=== PATIENT | male | born 1990 | race Caucasian/White ===

== ENCOUNTER 2020-12-18 10:34 | Inpatient (IN) | payer MEDICAID, OTHER ==
[~2020-12-18] VITALS: Ht 175.3 cm; Wt 60.3 kg
[~2020-12-18 10:34] MED LIST: BENZ1TAB70 PO; FLUP5TAB15 PO
[2020-12-18 11:34] LABS: BASOPHILS % (AUTO) 0.4 % (0.0-2.0); EOSINOPHILS % (AUTO) 0.4 % (1.0-6.0); HEMATOCRIT 47.1 % (41-53); HEMOGLOBIN 15.7 g/dL (13.5-17.5); LYMPHOCYTES % (AUTO) 11.5 % (22.0-44.0); MEAN CORPUSCULAR HEMOGLOBIN 30.4 pg (26.0-34.0); MEAN CORPUSCULAR HGB CONC 33.4 G/dL (31.0-37.0); MEAN CORPUSCULAR VOLUME 91 fL (80-100); MONOCYTES # (AUTO) 0.6 K/uL (0.1-1.0); MONOCYTES % (AUTO) 6.6 % (2.0-9.0); NEUTROPHILS % (AUTO) 81.1 % (40.0-70.0); PLATELET COUNT (AUTO) 211 K/uL (150-450); RED BLOOD CELL COUNT(AUTO) 5.18 MIL/uL (4.50-5.90); RED CELL DISTRIBUTION WIDTH 12.6 % (11.5-14.5)
[2020-12-18 11:38] LABS: COVID AG,FIA SOURCE NASAL SWAB
[2020-12-18 11:48] LABS: ANION GAP 8 mmol/L (8-16); CALCIUM, TOTAL 8.9 mg/dL (8.8-10.5); CARBON DIOXIDE 29 mmol/L (22-29); CHLORIDE 101 mmol/L (98-107); CREATININE 0.81 mg/dL (0.60-1.30); GLOMERULAR FILTR. RATE CALC > 60 mL/min (>60); GLUCOSE,RANDOM 94 mg/dL (70-110); POTASSIUM 4.2 mmol/L (3.5-5.1); SODIUM SERUM 138 mmol/L (136-145); UREA NITROGEN, BLOOD 22 mg/dL (7-18)
[2020-12-18 11:53] LABS: ALANINE AMINOTRANSFERASE 23 U/L (12-78); ALBUMIN 4.1 g/dL (3.4-5.0); ALKALINE PHOSPHATASE 85 U/L (46-116); ASPARTATE AMINOTRANSFERASE 18 U/L (15-37); BILIRUBIN,TOTAL 0.4 mg/dL (0.1-1.0)
[2020-12-18 11:54] LABS: ACETAMINOPHEN < 2 mcg/mL (10-30)
[2020-12-18 12:34] LABS: GLUCOSE, URINE (UA) NEGATIVE (NEGATIVE); KETONES,URINE 15 mg/dL (NEGATIVE); LEUKOCYTE ESTERASE ,URINE NEGATIVE (NEGATIVE); NITRATE,URINE NEGATIVE (NEGATIVE); OCCULT BLOOD,URINE NEGATIVE (NEGATIVE); PH,URINE 5.5 (5.0-8.0); PROTEIN,URINE NEGATIVE (NEGATIVE)
[2020-12-18 12:40] LABS: AMPHET/METH SCREEN,URINE POSITIVE (NEGATIVE); BARBITURATE SCREEN, URINE NEGATIVE (NEGATIVE); BENZODIAZEPINES SCREEN,URINE NEGATIVE (NEGATIVE); CANNABINOID SCREEN,URINE NEGATIVE (NEGATIVE); COCAINE SCREEN,URINE NEGATIVE (NEGATIVE); METHADONE SCREEN, URINE NEGATIVE (NEGATIVE); OPIATE SCREEN,URINE NEGATIVE (NEGATIVE)
[2020-12-18 12:41] LABS: BILIRUBIN,URINE PRELIM. POSITIVE (NEGATIVE); PHENCYCLIDINE SCREEN,URINE NEGATIVE (NEGATIVE)
[2020-12-18 12:42] LABS: APPEARANCE,URINE HAZY (CLEAR); BACTERIA,URINE None Seen /HPF (None Seen); RBC,URINE 0-2 /HPF (0-2); WBC,URINE None Seen /HPF (0-5)
[2020-12-18 16:25] VITALS: BP 124/77
[2020-12-18] MEDS: BACITRACIN 28 GM OINTMENT TP SCH (19:00)
[2020-12-19 00:48] VITALS: BP 106/59
[2020-12-19 08:09] VITALS: BP 112/64
[2020-12-19] MEDS: BACITRACIN 28 GM OINTMENT TP SCH ×2 (09:00→16:31)
[2020-12-19] MEDS: NICOTINE 14 MG/24 HOUR PATCH TD SCH (09:00)
[2020-12-19] MEDS: OLANZapine 5 MG RAPDIS TABLET PO SCH ×2 (11:37→20:40)
[2020-12-19] MEDS: FLUoxetine HCL 20 MG CAPSULE PO SCH (11:38)
[2020-12-19 16:15] VITALS: BP 112/74
[2020-12-20 02:30] VITALS: BP 120/78
[2020-12-20] MEDS: FLUoxetine HCL 20 MG CAPSULE PO SCH (08:36)
[2020-12-20] MEDS: OLANZapine 5 MG RAPDIS TABLET PO SCH ×2 (08:36→20:07)
[2020-12-20] MEDS: BACITRACIN 28 GM OINTMENT TP SCH ×2 (09:00→16:41)
[2020-12-20] MEDS: NICOTINE 14 MG/24 HOUR PATCH TD SCH (09:00)
[2020-12-21 02:00] VITALS: BP 119/77
[2020-12-21] MEDS: OLANZapine 5 MG RAPDIS TABLET PO SCH ×2 (08:54→20:14)
[2020-12-21] MEDS: FLUoxetine HCL 20 MG CAPSULE PO SCH (08:54)
[2020-12-21] MEDS: NICOTINE 14 MG/24 HOUR PATCH TD SCH (08:59)
[2020-12-21] MEDS: BACITRACIN 28 GM OINTMENT TP SCH ×2 (08:59→16:29)
[2020-12-21] MEDS: HALOPERIDOL 5 MG TABLET PO PRN (18:31)
[2020-12-21] MEDS: LORazepam 2 MG TABLET PO PRN (18:31)
[2020-12-22 00:36] VITALS: BP 102/63
[2020-12-22] MEDS: FLUoxetine HCL 20 MG CAPSULE PO SCH (08:32)
[2020-12-22] MEDS: LORazepam 2 MG TABLET PO PRN ×2 (08:33→17:49)
[2020-12-22] MEDS: OLANZapine 5 MG RAPDIS TABLET PO SCH ×2 (08:33→20:41)
[2020-12-22] MEDS: NICOTINE 14 MG/24 HOUR PATCH TD SCH (08:45)
[2020-12-22] MEDS: BACITRACIN 28 GM OINTMENT TP SCH ×2 (08:45→16:14)
[2020-12-22] MEDS: HALOPERIDOL 5 MG TABLET PO PRN (17:49)
[2020-12-23 07:02] LABS: COVID AG,FIA SOURCE NASOPHARYNGEAL
[2020-12-23] MEDS: OLANZapine 5 MG RAPDIS TABLET PO SCH ×3 (09:00→20:32)
[2020-12-23] MEDS: BACITRACIN 28 GM OINTMENT TP SCH ×2 (09:00→17:00)
[2020-12-23] MEDS: FLUoxetine HCL 20 MG CAPSULE PO SCH ×2 (09:00→10:27)
[2020-12-23] MEDS: NICOTINE 14 MG/24 HOUR PATCH TD SCH (09:00)
[2020-12-23] MEDS ORDERED: HALOPERIDOL LACTATE 5 MG/ML VIAL IM PRN (09:30)
[2020-12-23] MEDS ORDERED: OLANZapine 5 MG RAPDIS TABLET PO SCH (21:00)
[2020-12-24] MEDS: NICOTINE 14 MG/24 HOUR PATCH TD SCH (09:00)
[2020-12-24] MEDS: OLANZapine 5 MG RAPDIS TABLET PO SCH ×2 (09:19→20:33)
[2020-12-24] MEDS: BACITRACIN 28 GM OINTMENT TP SCH ×2 (09:19→17:00)
[2020-12-24] MEDS: FLUoxetine HCL 20 MG CAPSULE PO SCH (09:19)
[2020-12-25] MEDS: MULTIVITAMINS WITH MINERALS, THERAPEUTIC TABLET PO SCH (08:52)
[2020-12-25] MEDS: OLANZapine 10 MG RAPDIS TABLET PO SCH ×2 (08:52→20:32)
[2020-12-25] MEDS: FLUoxetine HCL 20 MG CAPSULE PO SCH (08:52)
[2020-12-25] MEDS: BACITRACIN 28 GM OINTMENT TP SCH ×2 (08:52→17:00)
[2020-12-25] MEDS: NICOTINE 14 MG/24 HOUR PATCH TD SCH (08:52)
[2020-12-25] MEDS ORDERED: TUBERCULIN, PURIFIED PROTEIN DERIVATIVE 5 TU/0.1 ML SYRINGE ID ONE (13:30)
[2020-12-25] MEDS: LORazepam 2 MG TABLET PO PRN (19:25)
[2020-12-25] MEDS: ZOLPIDEM TARTRATE 10 MG TABLET PO PRN (21:28)
[2020-12-26] MEDS: MULTIVITAMINS WITH MINERALS, THERAPEUTIC TABLET PO SCH (09:04)
[2020-12-26] MEDS: OLANZapine 10 MG RAPDIS TABLET PO SCH ×2 (09:04→20:30)
[2020-12-26] MEDS: NICOTINE 14 MG/24 HOUR PATCH TD SCH (09:04)
[2020-12-26] MEDS: FLUoxetine HCL 20 MG CAPSULE PO SCH (09:04)
[2020-12-26] MEDS: BACITRACIN 28 GM OINTMENT TP SCH ×2 (09:07→16:49)
[2020-12-26 16:08] VITALS: BP 128/61
[2020-12-27] MEDS: BACITRACIN 28 GM OINTMENT TP SCH ×2 (09:00→17:00)
[2020-12-27] MEDS: NICOTINE 14 MG/24 HOUR PATCH TD SCH (09:00)
[2020-12-27] MEDS: MULTIVITAMINS WITH MINERALS, THERAPEUTIC TABLET PO SCH (09:59)
[2020-12-27] MEDS: FLUoxetine HCL 20 MG CAPSULE PO SCH (09:59)
[2020-12-27] MEDS: OLANZapine 10 MG RAPDIS TABLET PO SCH ×4 (09:59→22:02)
[2020-12-28] MEDS: NICOTINE 14 MG/24 HOUR PATCH TD SCH (09:00)
[2020-12-28] MEDS: FLUoxetine HCL 20 MG CAPSULE PO SCH (09:18)
[2020-12-28] MEDS: MULTIVITAMINS WITH MINERALS, THERAPEUTIC TABLET PO SCH (09:18)
[2020-12-28] MEDS: BACITRACIN 28 GM OINTMENT TP SCH ×2 (09:18→16:53)
[2020-12-28] MEDS: OLANZapine 10 MG RAPDIS TABLET PO SCH ×2 (09:18→20:37)
[2020-12-28] MEDS: LORazepam 2 MG TABLET PO PRN (15:53)
[2020-12-28 16:17] VITALS: BP 115/77
[2020-12-29] MEDS: BACITRACIN 28 GM OINTMENT TP SCH ×2 (09:00→16:44)
[2020-12-29] MEDS: NICOTINE 14 MG/24 HOUR PATCH TD SCH (09:00)
[2020-12-29] MEDS: OLANZapine 10 MG RAPDIS TABLET PO SCH ×2 (09:59→20:33)
[2020-12-29] MEDS: FLUoxetine HCL 20 MG CAPSULE PO SCH (09:59)
[2020-12-29] MEDS: MULTIVITAMINS WITH MINERALS, THERAPEUTIC TABLET PO SCH (09:59)
[2020-12-30] MEDS: MULTIVITAMINS WITH MINERALS, THERAPEUTIC TABLET PO SCH (08:40)
[2020-12-30] MEDS: FLUoxetine HCL 20 MG CAPSULE PO SCH (08:40)
[2020-12-30] MEDS: OLANZapine 10 MG RAPDIS TABLET PO SCH ×2 (08:40→20:08)
[2020-12-30 08:41] LABS: COVID AG,FIA SOURCE NASOPHARYNGEAL
[2020-12-30] MEDS: BACITRACIN 28 GM OINTMENT TP SCH ×2 (08:43→16:36)
[2020-12-30 16:11] VITALS: BP 130/77
[2020-12-30] MEDS ORDERED: BENZOCAINE/MENTHOL LOZENGE PO PRN (18:15)
[2020-12-31 00:58] VITALS: BP 104/62
[2020-12-31] MEDS: OLANZapine 10 MG RAPDIS TABLET PO SCH ×2 (08:15→20:42)
[2020-12-31] MEDS: FLUoxetine HCL 20 MG CAPSULE PO SCH (08:15)
[2020-12-31] MEDS: MULTIVITAMINS WITH MINERALS, THERAPEUTIC TABLET PO SCH (08:16)
[2020-12-31] MEDS: BACITRACIN 28 GM OINTMENT TP SCH ×2 (09:21→16:40)
[2020-12-31 10:23] VITALS: BP 124/73
[2021-01-01] MEDS: BACITRACIN 28 GM OINTMENT TP SCH ×2 (09:00→16:33)
[2021-01-01] MEDS: OLANZapine 10 MG RAPDIS TABLET PO SCH ×2 (10:00→20:32)
[2021-01-01] MEDS: FLUoxetine HCL 20 MG CAPSULE PO SCH (10:00)
[2021-01-01] MEDS: MULTIVITAMINS WITH MINERALS, THERAPEUTIC TABLET PO SCH (10:00)
[2021-01-02 08:16] VITALS: BP 124/71
[2021-01-02] MEDS: FLUoxetine HCL 20 MG CAPSULE PO SCH (08:31)
[2021-01-02] MEDS: MULTIVITAMINS WITH MINERALS, THERAPEUTIC TABLET PO SCH (08:31)
[2021-01-02] MEDS: OLANZapine 10 MG RAPDIS TABLET PO SCH ×2 (08:31→20:52)
[2021-01-02] MEDS: BACITRACIN 28 GM OINTMENT TP SCH ×2 (08:34→17:23)
[2021-01-02 16:12] VITALS: BP 111/78
[2021-01-03 08:16] VITALS: BP 109/69
[2021-01-03] MEDS: FLUoxetine HCL 20 MG CAPSULE PO SCH (08:59)
[2021-01-03] MEDS: OLANZapine 10 MG RAPDIS TABLET PO SCH ×2 (08:59→20:03)
[2021-01-03] MEDS: MULTIVITAMINS WITH MINERALS, THERAPEUTIC TABLET PO SCH (08:59)
[2021-01-03] MEDS ORDERED: PALIPERIDONE PALMITATE 234 MG/1.5 ML SYRINGE IM SCH (09:00)
[2021-01-03] MEDS: BACITRACIN 28 GM OINTMENT TP SCH ×2 (09:11→16:55)
[2021-01-03 16:15] VITALS: BP 104/69
[2021-01-04] MEDS: OLANZapine 10 MG RAPDIS TABLET PO SCH ×2 (08:45→20:06)
[2021-01-04] MEDS: BACITRACIN 28 GM OINTMENT TP SCH ×2 (08:45→17:00)
[2021-01-04] MEDS: MULTIVITAMINS WITH MINERALS, THERAPEUTIC TABLET PO SCH (08:45)
[2021-01-04] MEDS: FLUoxetine HCL 20 MG CAPSULE PO SCH (08:45)
[2021-01-04] MEDS: LORazepam 2 MG TABLET PO PRN (15:02)
[2021-01-04 16:49] VITALS: BP 121/76
[2021-01-05] MEDS: LORazepam 2 MG TABLET PO PRN (08:51)
[2021-01-05] MEDS: BACITRACIN 28 GM OINTMENT TP SCH ×2 (08:51→17:01)
[2021-01-05] MEDS: FLUoxetine HCL 20 MG CAPSULE PO SCH (08:51)
[2021-01-05] MEDS: OLANZapine 10 MG RAPDIS TABLET PO SCH ×2 (08:51→20:28)
[2021-01-05] MEDS: MULTIVITAMINS WITH MINERALS, THERAPEUTIC TABLET PO SCH (08:51)
[2021-01-05] MEDS: ZOLPIDEM TARTRATE 10 MG TABLET PO PRN (20:28)
[2021-01-06 07:12] LABS: COVID AG,FIA SOURCE NASAL SWAB
[2021-01-06] MEDS: OLANZapine 10 MG RAPDIS TABLET PO SCH ×2 (09:02→20:44)
[2021-01-06] MEDS: MULTIVITAMINS WITH MINERALS, THERAPEUTIC TABLET PO SCH (09:02)
[2021-01-06] MEDS: BACITRACIN 28 GM OINTMENT TP SCH ×2 (09:02→16:41)
[2021-01-06] MEDS: FLUoxetine HCL 20 MG CAPSULE PO SCH (09:02)
[2021-01-07] MEDS: OLANZapine 10 MG RAPDIS TABLET PO SCH ×2 (08:10→20:20)
[2021-01-07] MEDS: BACITRACIN 28 GM OINTMENT TP SCH ×2 (08:10→17:14)
[2021-01-07] MEDS: FLUoxetine HCL 20 MG CAPSULE PO SCH (08:10)
[2021-01-07] MEDS: MULTIVITAMINS WITH MINERALS, THERAPEUTIC TABLET PO SCH (08:10)
[2021-01-07] MEDS: LORazepam 2 MG TABLET PO PRN (20:20)
[2021-01-08] MEDS: MULTIVITAMINS WITH MINERALS, THERAPEUTIC TABLET PO SCH (08:34)
[2021-01-08] MEDS: FLUoxetine HCL 20 MG CAPSULE PO SCH (08:34)
[2021-01-08] MEDS: OLANZapine 10 MG RAPDIS TABLET PO SCH ×2 (08:34→20:40)
[2021-01-08] MEDS: BACITRACIN 28 GM OINTMENT TP SCH ×2 (08:35→16:37)
[2021-01-08 16:40] VITALS: BP 110/69
[2021-01-09] MEDS: FLUoxetine HCL 20 MG CAPSULE PO SCH (08:35)
[2021-01-09] MEDS: MULTIVITAMINS WITH MINERALS, THERAPEUTIC TABLET PO SCH (08:35)
[2021-01-09] MEDS: OLANZapine 10 MG RAPDIS TABLET PO SCH ×2 (08:35→20:29)
[2021-01-09] MEDS: BACITRACIN 28 GM OINTMENT TP SCH ×2 (09:23→17:04)
[2021-01-10] MEDS: FLUoxetine HCL 20 MG CAPSULE PO SCH (09:17)
[2021-01-10] MEDS: OLANZapine 10 MG RAPDIS TABLET PO SCH ×2 (09:17→20:04)
[2021-01-10] MEDS: MULTIVITAMINS WITH MINERALS, THERAPEUTIC TABLET PO SCH (09:17)
[2021-01-10] MEDS: BACITRACIN 28 GM OINTMENT TP SCH ×2 (09:19→17:09)
[2021-01-10 16:28] VITALS: BP 140/86
[2021-01-10] MEDS: LORazepam 2 MG TABLET PO PRN (18:15)
[2021-01-11 01:55] VITALS: BP 129/75
[2021-01-11] MEDS: MULTIVITAMINS WITH MINERALS, THERAPEUTIC TABLET PO SCH (07:53)
[2021-01-11] MEDS: OLANZapine 10 MG RAPDIS TABLET PO SCH ×2 (07:53→20:33)
[2021-01-11] MEDS: FLUoxetine HCL 20 MG CAPSULE PO SCH (07:53)
[2021-01-11] MEDS: LORazepam 2 MG TABLET PO PRN ×2 (08:38→15:44)
[2021-01-11] MEDS: BACITRACIN 28 GM OINTMENT TP SCH (09:00)
[2021-01-11 09:16] VITALS: BP 129/61
[2021-01-11 16:22] VITALS: BP 115/72
[2021-01-12 00:52] VITALS: BP 125/78
[2021-01-12] MEDS: MULTIVITAMINS WITH MINERALS, THERAPEUTIC TABLET PO SCH (08:30)
[2021-01-12] MEDS: OLANZapine 10 MG RAPDIS TABLET PO SCH ×2 (08:30→20:45)
[2021-01-12] MEDS: FLUoxetine HCL 20 MG CAPSULE PO SCH (08:30)
[2021-01-12 16:27] VITALS: BP 124/71
[2021-01-13 05:45] VITALS: BP 118/69
[2021-01-13 08:02] LABS: COVID AG,FIA SOURCE NASOPHARYNGEAL
[2021-01-13] MEDS: MULTIVITAMINS WITH MINERALS, THERAPEUTIC TABLET PO SCH (09:32)
[2021-01-13] MEDS: OLANZapine 10 MG RAPDIS TABLET PO SCH ×2 (09:32→20:38)
[2021-01-13] MEDS: FLUoxetine HCL 20 MG CAPSULE PO SCH (09:32)
[2021-01-14 00:31] VITALS: BP 121/72
[2021-01-14] MEDS: MULTIVITAMINS WITH MINERALS, THERAPEUTIC TABLET PO SCH (09:58)
[2021-01-14] MEDS: FLUoxetine HCL 20 MG CAPSULE PO SCH (09:58)
[2021-01-14] MEDS: OLANZapine 10 MG RAPDIS TABLET PO SCH ×2 (09:58→20:44)
[2021-01-14 16:20] VITALS: BP 120/73
[2021-01-15] MEDS: FLUoxetine HCL 20 MG CAPSULE PO SCH (11:05)
[2021-01-15] MEDS: OLANZapine 10 MG RAPDIS TABLET PO SCH ×2 (11:05→20:22)
[2021-01-15] MEDS: MULTIVITAMINS WITH MINERALS, THERAPEUTIC TABLET PO SCH (11:05)
[2021-01-16 09:10] VITALS: BP 106/67
[2021-01-16] MEDS ORDERED: FLUO20CA36 PO (09:25)
[2021-01-16] MEDS ORDERED: OLAN10TA26 PO (09:26)
[2021-01-16] MEDS ORDERED: PALI234D IM (09:26)
[2021-01-16] MEDS: OLANZapine 10 MG RAPDIS TABLET PO SCH ×2 (09:57→20:06)
[2021-01-16] MEDS: FLUoxetine HCL 20 MG CAPSULE PO SCH (09:57)
[2021-01-16] MEDS: MULTIVITAMINS WITH MINERALS, THERAPEUTIC TABLET PO SCH (09:57)
[2021-01-16] MEDS: LORazepam 2 MG TABLET PO PRN ×2 (11:54→20:13)
[2021-01-16 16:29] VITALS: BP 111/74
[2021-01-16] MEDS: NICOTINE 21 MG/24 HOUR PATCH TD SCH (19:07)
[2021-01-17 04:35] VITALS: BP 112/57
[2021-01-17 07:01] LABS: CHOL/HDL RATIO 2.3 (4.2-7.3)
[2021-01-17 08:24] VITALS: BP 114/64
[2021-01-17] MEDS: OLANZapine 10 MG RAPDIS TABLET PO SCH (08:34)
[2021-01-17] MEDS: FLUoxetine HCL 20 MG CAPSULE PO SCH (08:34)
[2021-01-17] MEDS: MULTIVITAMINS WITH MINERALS, THERAPEUTIC TABLET PO SCH (08:34)
[2021-01-17] MEDS: NICOTINE 21 MG/24 HOUR PATCH TD SCH (08:34)
== END 2021-01-17 13:00 | DRG 750 ==
LOC: EMS 10:40 → B2S 14:10
PROVIDERS: ADMIT Psychiatry & Neurology Child & Adolescent Psychiatry; ATTEND Psychiatry & Neurology Child & Adolescent Psychiatry
DX: F20.0 Paranoid schizophrenia (principal); E44.0 Moderate protein-calorie malnutrition; E86.0 Dehydration; Z59.0 Homelessness; F31.9 Bipolar disorder, unspecified; J30.9 Allergic rhinitis, unspecified; F41.9 Anxiety disorder, unspecified; Z20.822 Contact with and (suspected) exposure to COVID-19; Z68.1 Body mass index [BMI] 19.9 or less, adult; F15.188 Other stimulant abuse with other stimulant-induced disorder; Z71.51 Drug abuse counseling and surveillance of drug abuser
CPT/HCPCS: 80053; 80061; 81001; 85025; 99285; G0480; G0481